=== PATIENT | male | born 1970 | race Caucasian/White ===

== ENCOUNTER 2016-11-25 09:26 | Inpatient (IN) | payer OTHER ==
[~2016-11-25] VITALS: Ht 177.8 cm; Wt 99.8 kg
[~2016-11-25 09:26] MED LIST: ELIQUIS5 MG PO
[2016-11-25 09:39] VITALS: BP 120/105
--- NOTE | 2016-11-25 10:05 | NUR ---
Patient ambulated to bed 8. RN evaluating patient at bedside.
--- NOTE | 2016-11-25 10:10 | NUR ---
46/M BIB FRIEND C/O LEFT LEG PAIN. HX LEFT LOWER LEG DVT. PT STATES HE STOPPED TAKING HIS ELIQUIS AND THE PAIN IN HIS LEG RETURNED WORSE THAN BEFORE. PT STATED HAS COUGH AT THIS TIME. DENIES N/V/D; LEFT LOWER LEG REDNESS,SWELLING &PAIN AT THIS TIME. AAOX4 WITH EVEN AND UNSTEADY GAIT; LUNGS CLEAR BL; HR EVEN AND REGULAR; PT DENIES ANY FEVER, CP, SOB AT THIS TIME; PATIENT STATES PAIN OF 4/10 AT THIS TIME; PATIENT POSITIONED FOR COMFORT; HOB ELEVATED; BEDRAILS UP X2; BED DOWN. ER MD MADE AWARE OF PT STATUS.
--- NOTE | 2016-11-25 10:26 | NUR ---
ER MD DR CANTOR EVALUATING PT AT BEDSIDE
--- NOTE | 2016-11-25 10:47 | NUR ---
US AT BEDSIDE
[2016-11-25] MEDS ORDERED: ENOXAPARIN 100 MG/ML SYR SUBQ ONE (12:00)
[2016-11-25] MEDS ORDERED: ACETAMINOPHEN 325 MG TAB PO PRN (12:15)
[2016-11-25] MEDS ORDERED: MORPHINE SULFATE 4 MG/ML SYR IVP PRN (12:15)
[2016-11-25] MEDS ORDERED: ONDANSETRON 4 MG/2 ML VIAL IVP PRN (12:15)
[2016-11-25] MEDS ORDERED: MORPHINE SULFATE 2 MG/ML SYR IVP PRN (12:15)
[2016-11-25] MEDS ORDERED: ALBUTEROL SULFATE/IPRATROPIU 3 ML SOL IH ONE (12:20)
--- NOTE | 2016-11-25 12:35 | NUR ---
GAVE REPORT TO ABIEL ADAMS
[2016-11-25 12:40] VITALS: BP 127/83
--- NOTE | 2016-11-25 12:40 | NUR ---
PT ARRIVED ON UNIT AAOX4 WITH FAMILY MEMBER PRESENT AT SIDE. PT AMB TO BED. NOTED REDNESS ON THE LEFT LEG. PT SKIN IS INTACT. IV ON THE R AC. ON TELE MONITORING. PT DENIES PAIN. BED IS LOWERED FLAT WITH CALL LIGHT WITHIN REACH.
--- NOTE | 2016-11-25 12:40 | NUR ---
Patient will be admitted to care of DR GORDON. Admited to TELE. Will go to [id number]. Belongings list completed. Report to ABIEL ADAMS.
--- NOTE | 2016-11-25 13:00 | NUR ---
PT SEEN BY DR. GORDON
--- NOTE | 2016-11-25 15:00 | NUR ---
PT IN BED SLEEPING. PT SHOWS NO S/S OF DISTRESS NOTED ON ROOM AIR.
--- NOTE | 2016-11-25 16:00 | NUR ---
PT IN BED RESTING COMFORTABLY WITH NO S/S OF DISTRESS NOTED.
[2016-11-25 16:01] VITALS: BP 133/86
--- NOTE | 2016-11-25 18:00 | NUR ---
PT IN BED WATCHING TV. PT SHOWS NO S/S OF DISTRESS NOTED ON ROOM AIR.
--- NOTE | 2016-11-25 19:03 | NUR ---
GAVE REPORT TO NIGHT NURSE. PT ENDORSED IN STABLE CONDITION.
--- NOTE | 2016-11-25 19:10 | NUR ---
RECEIVED PT AWAKE SITTING ON BED EATING SNACKS, VITAL SIGNS STABLE, NO SOB NOTED, TOLERABLE 3/10 PAIN LEVEL TO LEFT LEG, SITE RED AND SWOLLEN, SKIN INTACT, SAFETY PROTOCOL IN PLACE, PLAN OF CARE DISCUSSED, CALL LIGHT WITHIN REACH.
[2016-11-25 20:00] VITALS: BP 129/90
[2016-11-25] MEDS: ENOXAPARIN 100 MG/ML SYR SUBQ SCH (20:21)
--- NOTE | 2016-11-25 20:30 | NUR ---
LOVENOX SUB-Q GIVEN WITH EDUCATION PROVIDED, ALL NEEDS ATTENDED.
--- NOTE | 2016-11-25 22:15 | NUR ---
AMBULATORY TO BR WITH STEADY GAIT, DENIES ANY PAIN, MONITORED CLOSELY.
[2016-11-26] VITALS: BP 141/89
--- NOTE | 2016-11-26 | NUR ---
SLEEPING, EASILY AROUSABLE, VITAL SIGNS STABLE, DENIES ANY PAIN, OCCASIONAL COUGH NOTED, NO SOB NOTED, CONTINUE TO MONITOR CLOSELY.
[2016-11-26 04:00] VITALS: BP 134/69
--- NOTE | 2016-11-26 04:00 | NUR ---
PT SLEEPING, EASILY AROUSABLE, VITAL SIGNS STABLE, DENIES ANY PAIN.
--- NOTE | 2016-11-26 05:52 | NUR ---
ROUNDED ON PT, SLEEPING, NO SIGNS OF DISTRESS, MONITORED CLOSELY.
--- NOTE | 2016-11-26 07:30 | NUR ---
PT AWAKE, NO DISTRESS NOTED, REPORT GIVEN TO ABIEL MO FOR CONTINUITY OF CARE.
--- NOTE | 2016-11-26 07:32 | NUR ---
RECEIVED REPORT FROM NIGHT RN, PATIENT RESTING IN BED, AAO X 4, IV INTACT AND PATENT, PATIENT DENIES PAIN AT THIS TIME, NO S/S OF ACUTE DISTRESS, LT LEG SWOLLEN AND RED, WARM TO TOUGH, CALL LIGHT WITHIN REACH, SAFETY MEASURE ENSURED, WILL CONTINUE TO MONITOR.
[2016-11-26 08:00] VITALS: BP 134/86
[2016-11-26] MEDS: ENOXAPARIN 100 MG/ML SYR SUBQ SCH (09:21)
--- NOTE | 2016-11-26 09:41 | NUR ---
PATIENT HAS BEEN SCREENED AND CATEGORIZED MODERATE NUTRITION RISK. PATIENT WILL BE SEEN WITHIN 3-5 DAYS OF ADMISSION. 11/27/16-11/29/[address]
--- NOTE | 2016-11-26 10:45 | NUR ---
PT RESTING IN BED, NO S/S OF DISTRESS NOTED, PATIENT DENIES PAIN AT THIS TIME, CALL LIGHT WITHIN REACH, WILL CONTINUE TO MONITOR
[2016-11-26 12:00] VITALS: BP 131/85
--- NOTE | 2016-11-26 12:04 | NUR ---
FAXED INITIAL REVIEW TO [facility] [phone] PHONE LISS [phone]
--- NOTE | 2016-11-26 12:20 | NUR ---
PT RESTING IN BED AND WATCHING TV, NO S/S OF ACUTE DISTRESS, PT DENIES PAIN AT THIS TIME, CALL LIGHT WITH IN REACH, SAFETY MEASURE ENSURED, WILL CONTINUE TO MONITOR.
[2016-11-26 14:02] VITALS: BP 131/85
--- NOTE | 2016-11-26 14:30 | NUR ---
PT IS DISCHARGED, DISCHARGE INSTRUCTION PROVIDED, PT VERBALIZED UNDERSTANDING, IV TAKEN OUT, TIP INTACT, PATIENT IS IN STABLE CONDITION
[2016-11-26] MEDS ORDERED: APIXABAN 2.5 MG TAB PO SCH (21:00)
[2016-11-26] MEDS ORDERED: APIXABAN 10 MG PO SCH (21:00)
== END 2016-11-26 14:58 | disposition home or self-care (01) | DRG 197 ==
LOC: MED 09:26 → MTU 12:15
PROVIDERS: ADMIT Hospitalist; ATTEND Hospitalist
DX: I82.412 Acute embolism and thrombosis of left femoral vein (principal); Z79.01 Long term (current) use of anticoagulants; I82.532 Chronic embolism and thrombosis of left popliteal vein

== ENCOUNTER 2017-04-01 18:10 | Inpatient (IN) | payer OTHER ==
[~2017-04-01] VITALS: Ht 180.3 cm; Wt 112.1 kg
[~2017-04-01 18:10] MED LIST changes: +APIX5TAB PO; -ELIQUIS5 MG PO
[2017-04-01 18:15] VITALS: BP 137/70
[2017-04-01 18:56] LABS: BASOPHILS # (AUTO) 0.1 K/uL (0.00-0.22); BASOPHILS % (AUTO) 1.2 % (0.0-2.0); EOSINOPHILS # (AUTO) 0.3 K/uL (0-0.4); EOSINOPHILS % (AUTO) 4.1 % (0.0-4.0); HEMATOCRIT 49.9 % (36-52); HEMOGLOBIN 16.6 g/dL (12.0-18.0); LYMPHOCYTES # (AUTO) 1.2 K/uL (2.0-11.5); LYMPHOCYTES % (AUTO) 14.3 % (20.5-51.1); MEAN CORPUSCULAR HEMOGLOBIN 30 pg (27-31); MEAN CORPUSCULAR HGB CONC 33 g/dL (33-37); MEAN CORPUSCULAR VOLUME 92 fL (80-94); MONOCYTES # (AUTO) 0.4 K/uL (0.8-1.0); NEUTROPHILS # (AUTO) 6.5 K/uL (1.8-7.7); NEUTROPHILS % (AUTO) 75.4 % (42.2-75.2); PLATELET COUNT (AUTO) 339 K/uL (140-450); RED BLOOD CELL COUNT(AUTO) 5.45 MIL/uL (4.20-6.10); RED CELL DISTRIBUTION WIDTH 12.2 % (11.6-13.7); WHITE BLOOD COUNT (AUTO) 8.5 K/uL (4.8-10.8)
[2017-04-01 19:23] LABS: ANION GAP 15.5 (8-16); CARBON DIOXIDE 25.6 mmol/L (21-32); POTASSIUM 4.1 mmol/L (3.5-5.1)
[2017-04-01 19:31] LABS: PROTHROMBIN TIME 10.3 secs (10.8-13.4)
[2017-04-01 19:32] LABS: TOTAL BILIRUBIN 0.8 mg/dL (0.0-1.0)
[2017-04-01 19:33] LABS: ALBUMIN 3.3 g/dL (3.4-5.0)
--- NOTE | 2017-04-01 19:34 | NUR ---
AMBULATED TO ER BED 3
--- NOTE | 2017-04-01 19:37 | NUR ---
46/M PRESENT TO ER C/O RT LOWER LEG PAIN x 2 DAYS. POS REDNESS AND EDEMA. PAIN 5/10 BURNING PAIN.HX: BLOOD CLOTS 2017 MEDS: WARFARIN 2.5MG
--- NOTE | 2017-04-01 19:45 | NUR ---
VANESSA PARRA EVALUATING PT.
[2017-04-01] MEDS ORDERED: LORazepam 2 MG/ML VIAL IVP PRN (19:55)
[2017-04-01] MEDS ORDERED: HYDROcodone/APAP 5/325 MG 1 TAB TAB PO PRN (19:55)
[2017-04-01] MEDS ORDERED: ACETAMINOPHEN 325 MG TAB PO PRN (19:55)
[2017-04-01] MEDS ORDERED: ONDANSETRON 4 MG/2 ML VIAL IVP PRN (19:55)
[2017-04-01] MEDS ORDERED: LOVENOX 1MG/KG Q24H SUBQ STA (19:57)
[2017-04-01] MEDS ORDERED: ENOXAPARIN 100 MG/ML SYR SUBQ ONE (20:10)
[2017-04-01 20:25] VITALS: BP 138/78
--- NOTE | 2017-04-01 21:04 | NUR ---
PT TAKEN TO FLOOR VIA GURNEY, ACCOMPANIED BY RN AND EMT.
--- NOTE | 2017-04-01 21:07 | NUR ---
PT TAKEN TO FLOOR VIA GURNEY BY CHARGE NURSE AND EMT.
--- NOTE | 2017-04-01 21:10 | NUR ---
RECEIVED PATIENT FROM ED PER MICHEL. PATIENT IS AWAKE, ALERT, ORIENTED X4. ABLE TO AMBULATE TO THE BED. LEFT AC PERIPHERAL IV PATENT AND INTACT. RLE ERYTHEMA AND SWELLING NOTED. SKIN WARM TO TOUCH WNL, TOENAILS WNL, WITH FINE HAIR GROWTH, BROWNISH SPOTS NOTED ON BLE AND +2 BILATERAL PEDAL PULSES. URINE AND BOWEL CONTINENT, ABLE TO MAKE HIS NEEDS KNOWN. ORIENTED TO CALL LIGHT, TV, VISITING HOURS AND BEDSIDE MONITOR. CALL LIGHT WITHIN REACH. WILL MONITOR PATIENT.
--- NOTE | 2017-04-01 21:24 | NUR ---
Patient will be admitted to care of DR MCPHERSON. Admited to TELEMETRY. Will go to room ICU 2. Belongings list completed. Report to ABIEL GERMAN.
[2017-04-01] MEDS: NACL 0.9% 1,000 ML IV SCH (21:31)
[2017-04-02 00:07] VITALS: BP 136/89
--- NOTE | 2017-04-02 00:21 | NUR ---
PATIENT APPEARS TO BE SLEEPING COMFORTABLY AT THIS TIME.
--- NOTE | 2017-04-02 03:28 | NUR ---
PATIENT IS SLEEPING COMFORTABLY AT THIS TIME.
[2017-04-02 04:00] VITALS: BP 145/97
[2017-04-02 05:09] LABS: BASOPHILS # (AUTO) 0.2 K/uL (0.00-0.22); BASOPHILS % (AUTO) 2.8 % (0.0-2.0); EOSINOPHILS # (AUTO) 0.5 K/uL (0-0.4); EOSINOPHILS % (AUTO) 7.4 % (0.0-4.0); HEMATOCRIT 49.8 % (36-52); HEMOGLOBIN 16.5 g/dL (12.0-18.0); LYMPHOCYTES # (AUTO) 1.8 K/uL (2.0-11.5); LYMPHOCYTES % (AUTO) 27.3 % (20.5-51.1); MEAN CORPUSCULAR HEMOGLOBIN 31 pg (27-31); MEAN CORPUSCULAR HGB CONC 33 g/dL (33-37); MEAN CORPUSCULAR VOLUME 94 fL (80-94); MONOCYTES # (AUTO) 0.7 K/uL (0.8-1.0); MONOCYTES % (AUTO) 11.4 % (1.7-9.3); NEUTROPHILS # (AUTO) 3.4 K/uL (1.8-7.7); NEUTROPHILS % (AUTO) 51.1 % (42.2-75.2); PLATELET COUNT (AUTO) 297 K/uL (140-450); RED CELL DISTRIBUTION WIDTH 12.3 % (11.6-13.7)
[2017-04-02 05:54] LABS: ANION GAP 10.4 (8-16); CARBON DIOXIDE 28.8 mmol/L (21-32); POTASSIUM 4.2 mmol/L (3.5-5.1)
[2017-04-02 06:41] LABS: WHITE BLOOD COUNT (AUTO) 6.6 K/uL (4.8-10.8)
--- NOTE | 2017-04-02 07:11 | NUR ---
REPORT GIVEN TO MORNING RN FOR CONTINUITY OF CARE. PATIENT IN STABLE CONDITION.
--- NOTE | 2017-04-02 07:25 | NUR ---
RECEIVED REPORT FROM ABIEL WILKINSON. PT IS AWAKE, AAO X4. MILD REDNESS NOTED TO THE RIGHT LOWER LEG. NO COMPLAINT OF PAIN OR DISCOMFORT AT THIS TIME. NSR ON MONITOR. LUNGS SOUND CLEAR BILATERALLY. BOWEL SOUNDS PRESENT X 4 QUAD. PERIPHERAL IV 20 G TO THE LEFT AC, INTACT AND PATENT, FLOWING ORDERED IV FLUID. NO SIGNS OF ACUTE DISTRESS NOTED. NEEDS WELL ATTENDED. BED IN LOWEST POSITION AND CALL LIGHT WITHIN REACH. WILL CONTINUE TO MONITOR.
[2017-04-02 08:00] VITALS: BP 129/77
[2017-04-02] MEDS: NACL 0.9% 1,000 ML IV SCH ×3 (08:23→20:19)
[2017-04-02] MEDS: ENOXAPARIN 120 MG/0.8 ML SYR SUBQ SCH ×2 (08:56→20:18)
--- NOTE | 2017-04-02 11:01 | NUR ---
FAXED INITIAL REVIEW TO [facility] [phone] PHONE LISS [phone]
--- NOTE | 2017-04-02 11:07 | NUR ---
IN TO CHECK PT, WILL FOLLOW UP.
--- NOTE | 2017-04-02 11:18 | NUR ---
CHECKED ON PT. SLEEPING COMFORTABLY AT THIS TIME. NO SIGNS OF ACUTE DISTRESS NOTED. BED IN LOWEST POSITION. CALL LIGHT WITHIN REACH.
[2017-04-02 12:00] VITALS: BP 140/91
[2017-04-02] MEDS ORDERED: PROBIOTIC SCREEN 1 EA MISC MC PRN (12:00)
--- NOTE | 2017-04-02 12:00 | NUR ---
PT STATED HE DRINKS ALCOHOL SOMETIMES, PT IS ON COUMADIN, EDUCATION GIVEN TO PT REGARDING ALCOHOL INCREASE RISK FOR BLEEDING. PT VERBALIZED UNDERSTANDING.
--- NOTE | 2017-04-02 12:35 | NUR ---
LUNCH TRAY SERVED, PT ATE 90% FOOD.
[2017-04-02 15:48] LABS: PROTHROMBIN TIME 10.4 secs (10.8-13.4)
--- NOTE | 2017-04-02 15:55 | NUR ---
PT SLEEPING IN BED BUT EASILY AWAKEN, NO S/S OF RESPIRATORY DISTRESS NOTED. DENIES PAIN AT THIS TIME.
[2017-04-02 16:00] VITALS: BP 150/98
[2017-04-02] MEDS ORDERED: WARFARIN 2.5 MG TAB PO SCH (17:00)
--- NOTE | 2017-04-02 17:15 | NUR ---
DUE MED GIVEN, DRUG INTERACTION GIVEN TO PT. PT VERBALIZED UNDERSTANDING AND SIGNED THE INSTRUCTION SHEET.
--- NOTE | 2017-04-02 18:30 | NUR ---
PT SLEEPING BUT EASILY AWAKING BY ASSESSMENT. NO S/S OF RESPIRATORY DISTRESS NOTED. PT DENIES PAIN AT THIS TIME.
--- NOTE | 2017-04-02 19:10 | NUR ---
REPORT GIVEN TO ADULT CAREGIVER RN. PT IN STABLE CONDITION.
--- NOTE | 2017-04-02 19:20 | NUR ---
ASSUMED CARE OF PT.INITIAL ASSESSMENT COMPLETED.PT ASLEEP;EASILY AROUSABLE.ON ROOM AIR.TOLERATING AT THIS TIME.NO SOB NOTED.PERIPHERAL IV TO LT AC G20 INTACT INFUSING ORDERED IVF.SKIN INTACT.ERYTHEMA TO RLE NOTED.PT ABLE TO VOID FREELY USING URINAL.DENIES PAIN WHEN ASKED.
[2017-04-02 19:34] LABS: BARBITURATE, URINE NEG. ng/ml (NEG <=200); BENZODIAZEPINE, URINE NEG. ng/mL (NEG <=200); CANNABINOID, URINE NEG. ng/mL (NEG <=50); COCAINE, URINE NEG. ng/mL (NEG <=300); OPIATE, URINE NEG. ng/mL (NEG <=2000); PHENCYCLIDINE SCREEN,URINE NEG. ng/mL (NEG <=25)
[2017-04-02 20:00] VITALS: BP 147/97
--- NOTE | 2017-04-02 22:00 | NUR ---
PT ASLEEP;EASILY AROUSABLE.DENIES PAIN WHEN ASKED.DENIES SOB.REMINDED TO POSITION SELF.
[2017-04-03] VITALS: BP 166/98
--- NOTE | 2017-04-03 00:36 | NUR ---
PTS CONDITION REMAINS UNCHANGED.TOLERATING ROOM AIR. NO SOB NOTED.NO S/SX OF PAIN NOTED.VOIDED YELLOW UIRNE/URINAL
--- NOTE | 2017-04-03 03:25 | NUR ---
PT ASLEEP;NO COMPLAINTS MADE.DENIES PAIN.NO SOB NOTED
[2017-04-03 04:00] VITALS: BP 155/102
[2017-04-03 04:49] LABS: BASOPHILS # (AUTO) 0.2 K/uL (0.00-0.22); BASOPHILS % (AUTO) 2.7 % (0.0-2.0); EOSINOPHILS # (AUTO) 0.3 K/uL (0-0.4); EOSINOPHILS % (AUTO) 4.3 % (0.0-4.0); HEMATOCRIT 50.1 % (36-52); HEMOGLOBIN 16.5 g/dL (12.0-18.0); LYMPHOCYTES # (AUTO) 1.6 K/uL (2.0-11.5); LYMPHOCYTES % (AUTO) 22.2 % (20.5-51.1); MEAN CORPUSCULAR HEMOGLOBIN 31 pg (27-31); MEAN CORPUSCULAR HGB CONC 33 g/dL (33-37); MEAN CORPUSCULAR VOLUME 93 fL (80-94); MONOCYTES # (AUTO) 0.6 K/uL (0.8-1.0); MONOCYTES % (AUTO) 7.8 % (1.7-9.3); NEUTROPHILS # (AUTO) 4.6 K/uL (1.8-7.7); PLATELET COUNT (AUTO) 317 K/uL (140-450); RED BLOOD CELL COUNT(AUTO) 5.39 MIL/uL (4.20-6.10); RED CELL DISTRIBUTION WIDTH 12.5 % (11.6-13.7); WHITE BLOOD COUNT (AUTO) 7.3 K/uL (4.8-10.8)
[2017-04-03 05:56] LABS: ANION GAP 8.2 (8-16); CREATININE 0.9 mg/dL (0.7-1.3); POTASSIUM 4.2 mmol/L (3.5-5.1)
[2017-04-03 06:14] LABS: PROTHROMBIN TIME 10.5 secs (10.8-13.4)
--- NOTE | 2017-04-03 06:19 | NUR ---
ASLEEP MOST OF THE NIGHT.EASILY AROUSABLE.SB NOTED ON MONITOR AT TIMES;PT ASYMPTOMATIC.DENIES PAIN.
[2017-04-03 08:30] VITALS: BP 141/91
--- NOTE | 2017-04-03 08:30 | NUR ---
ASSUMED CARE OF PT FROM DWAIN, PT SLEEPING BUT EASILY AWAKEN BY ASSESSMENT. BEDSIDE MONITOR SHOWS SR, ROOM AIR, NO S/S OF RESPIRATORY DISTRESS NOTED. IV SITE INTACT AND PATENT. ABDOMEN SOFT, NON TENDER, RIGHT LOWER LEG REDNESS GETTING BETTER COMPARED TO YESTERDAY. PT DENIES PAIN, POC EXPLAINED TO PT, PT VERBALIZED UNDERSTANDING, ASKED PT WHY HE IS SO SLEEPY, PT STATED " NOTHING TO DO". CALL LIGHT IN REACH, WILL CONTINUE TO MONITOR.
[2017-04-03] MEDS: ENOXAPARIN 120 MG/0.8 ML SYR SUBQ SCH (09:14)
--- NOTE | 2017-04-03 09:20 | NUR ---
DUE MEDS GIVEN, PT TOLERATED WELL.
[2017-04-03] MEDS ORDERED: RIVA15TA1 PO (10:52)
--- NOTE | 2017-04-03 10:55 | NUR ---
DR. SHELTON IN TO SEE PT. WILL FOLLOW UP.
[2017-04-03] MEDS ORDERED: RIVAROXABAN 15 MG TAB PO SCH (11:27)
[2017-04-03 12:00] VITALS: BP 157/88
--- NOTE | 2017-04-03 12:21 | NUR ---
LUNCH TRAY SERVED. PT ATE 90% FOOD.
--- NOTE | 2017-04-03 12:30 | NUR ---
PT AWAKE, ALERT, AND ORIENTED. NO S/S OF RESPIRATORY DISTRESS NOTED. PT SIGNED DISCHARGE INSTRUCTION AND VERBALIZED UNDERSTANDING, PRESCRIPTION GIVEN. ARMBAND REMOVED, IV D/C ED, CANNULA INTACT. ALL PERSONAL BELONGINGS WITH PT. PT WALKED OUT OF UNIT WITH STEADY GAIT.VITALS STABLE UPON DISCHARGE.
--- NOTE | 2017-04-03 15:39 | NUR ---
VERBAL REVIEW GIVEN TO LISS FROM [facility]. FAXED DISCHARGE SUMMARY.
== END 2017-04-03 12:30 | disposition home or self-care (01) | DRG 197 ==
LOC: MED 18:10 → MIC 19:59
PROVIDERS: ADMIT Hospitalist; ATTEND Hospitalist
DX: I82.431 Acute embolism and thrombosis of right popliteal vein (principal); E44.1 Mild protein-calorie malnutrition; F15.10 Other stimulant abuse, uncomplicated; F10.10 Alcohol abuse, uncomplicated; L03.90 Cellulitis, unspecified; F17.210 Nicotine dependence, cigarettes, uncomplicated; Z91.14 Patient's other noncompliance with medication regimen; Z79.01 Long term (current) use of anticoagulants; I82.403 Acute embolism and thrombosis of unspecified deep veins of lower extremity, bilateral; I82.502 Chronic embolism and thrombosis of unspecified deep veins of left lower extremity
CPT/HCPCS: 36415; 80048; 80053; 80305; 85025; 85610; 85730; 87081; 93971; 96372; 99285; J1650; J7030; Q0092

== ENCOUNTER 2017-07-21 18:17 | Emergency (ER) | payer OTHER ==
[~2017-07-21] VITALS: Ht 180.3 cm; Wt 103.0 kg
[~2017-07-21 18:17] MED LIST changes: -APIX5TAB PO; +RIVA15TA1 PO
[2017-07-21 18:24] VITALS: BP 154/109
[2017-07-21 20:52] VITALS: BP 144/93
== END 2017-07-21 20:52 | disposition home or self-care (01) ==
LOC: MED 18:17
DX: S83.92XA Sprain of unspecified site of left knee, initial encounter (principal); Z76.0 Encounter for issue of repeat prescription; V19.9XXA Pedal cyclist (driver) (passenger) injured in unspecified traffic accident, initial encounter; Y93.89 Activity, other specified; Y92.488 Other paved roadways as the place of occurrence of the external cause; Y99.8 Other external cause status; Z86.718 Personal history of other venous thrombosis and embolism
CPT/HCPCS: 73562; 99284

== ENCOUNTER 2017-09-21 19:01 | Emergency (ER) | payer OTHER ==
[~2017-09-21] VITALS: Ht 177.8 cm; Wt 103.0 kg
[2017-09-21 19:24] VITALS: BP 113/80
--- NOTE | 2017-09-21 19:30 | NUR ---
to lobby , a/w bed, ambulatory , stable, ermd noted.
--- NOTE | 2017-09-21 21:00 | NUR ---
PATIENT PRESENTS TO ED WITH CELLULITIS . PT HAS REDNESS, SWELLING, WARM TO TOUCH AND PAIN ON THE LEFT LEG SINCE YESTERDAY. DENIES N/V/D; AAOX4 WITH EVEN AND STEADY GAIT; LUNGS CLEAR BL; HR EVEN AND REGULAR; PT DENIES ANY FEVER, CP, SOB, OR COUGH AT THIS TIME; PATIENT STATES PAIN OF 0/10 AT THIS TIME; VSS; PATIENT POSITIONED FOR COMFORT; HOB ELEVATED; BEDRAILS UP X2; BED DOWN. ER MD MADE AWARE OF PT STATUS.
--- NOTE | 2017-09-21 21:02 | NUR ---
Patient being evaluated by physician at bedside.
[2017-09-21] MEDS ORDERED: cefTRIAXone 1,000 MG in LIDOCAINE MPF 1% - **ER/OR** 2.1 ML IM ONE (21:10)
[2017-09-21 21:40] VITALS: BP 110/78
--- NOTE | 2017-09-21 21:40 | NUR ---
Patient discharged with v/s stable. Written and verbal after care instructions given and explained. Patient alert, oriented and verbalized understanding of instructions. Ambulatory with steady gait. All questions addressed prior to discharge. ID band removed. Patient advised to follow up with PMD. Rx of XARELTO, KEFLEX, BACTRIM DS given. Patient educated on indication of medication including possible reaction and side effects. Opportunity to ask questions provided and answered.
== END 2017-09-21 21:40 | disposition home or self-care (01) ==
LOC: MED 19:01
DX: L03.116 Cellulitis of left lower limb (principal); I48.91 Unspecified atrial fibrillation
CPT/HCPCS: 96372; 99283; J0696; J2001

== ENCOUNTER 2017-09-24 15:04 | Inpatient (IN) | payer OTHER ==
[~2017-09-24] VITALS: Ht 177.8 cm; Wt 102.3 kg
[2017-09-24 15:30] VITALS: BP 145/106
--- NOTE | 2017-09-24 16:24 | NUR ---
PT TAKEN TO BED VIA W/C
[2017-09-24] MEDS ORDERED: NACL 0.9% 1,000 ML IV ONE (16:30)
[2017-09-24] MEDS ORDERED: PIPERACILLIN/TAZOBACTAM 3.375 GM in DEXTROSE 5% 50 ML IV ONE (16:30)
[2017-09-24] MEDS ORDERED: VANCOMYCIN 1,000 MG in DEXTROSE 5% 250 ML IV ONE (16:30)
[2017-09-24 17:31] LABS: BASOPHILS # (AUTO) 0.1 K/uL (0.00-0.22); EOSINOPHILS # (AUTO) 0.2 K/uL (0-0.4); EOSINOPHILS % (AUTO) 1.5 % (0.0-4.0); HEMATOCRIT 52.5 % (36-52); HEMOGLOBIN 17.1 g/dL (12.0-18.0); LYMPHOCYTES % (AUTO) 8.1 % (20.5-51.1); MEAN CORPUSCULAR HEMOGLOBIN 31 pg (27-31); MEAN CORPUSCULAR HGB CONC 33 g/dL (33-37); MEAN CORPUSCULAR VOLUME 95 fL (80-94); MONOCYTES # (AUTO) 0.9 K/uL (0.8-1.0); MONOCYTES % (AUTO) 7.3 % (1.7-9.3); NEUTROPHILS # (AUTO) 10.1 K/uL (1.8-7.7); NEUTROPHILS % (AUTO) 82.1 % (42.2-75.2); PLATELET COUNT (AUTO) 369 K/uL (140-450); RED BLOOD CELL COUNT(AUTO) 5.55 MIL/uL (4.20-6.10); WHITE BLOOD COUNT (AUTO) 12.3 K/uL (4.8-10.8)
[2017-09-24 18:03] LABS: ANION GAP 13.1 (8-16); CREATININE 1.1 mg/dL (0.7-1.3); POTASSIUM 4.1 mmol/L (3.5-5.1)
[2017-09-24] MEDS ORDERED: VANCOMYCIN 1,000 MG VIAL ONE (18:06)
[2017-09-24] MEDS ORDERED: PIPERACILLIN/TAZOBACTAM 3.375 GM VIAL IV ONE ×2 (18:06→21:41)
[2017-09-24 18:16] LABS: ALBUMIN 3.5 g/dL (3.4-5.0); TOTAL BILIRUBIN 0.7 mg/dL (0.0-1.0)
--- NOTE | 2017-09-24 18:30 | NUR ---
PATIENT PRESENTS TO ED WITH LEFT LEG CELLULITIS X 3 DAYS. WAS SEEN HERE LAST WEEK FOR A "BLOOD CLOT" TO LEFT LEG. SITE REDDENED/HOT/PAINFUL TO TOUCH. DENIES FEVERS/CHILLS. PT DENIES N/V/D; AAOX4 WITH EVEN AND STEADY GAIT; LUNGS CLEAR BL; HR EVEN AND REGULAR; PT DENIES ANY FEVER, CP, SOB, OR COUGH AT THIS TIME; PATIENT STATES PAIN OF 4/10 AT THIS TIME; VSS; PATIENT POSITIONED FOR COMFORT; HOB ELEVATED; BEDRAILS UP X2; BED DOWN. ER MD MADE AWARE OF PT STATUS.
[2017-09-24 18:37] LABS: APPEARANCE,URINE CLEAR (CLEAR); BILIRUBIN,URINE NEGATIVE (NEGATIVE); BLOOD, URINE NEGATIVE (NEGATIVE); COLOR,URINE YELLOW (YELLOW); LEUKOCYTE ESTERASE ,URINE NEGATIVE (NEGATIVE); NITRITE, URINE NEGATIVE (NEGATIVE); UGLUCOSE NEGATIVE (NEGATIVE)
[2017-09-24] MEDS ORDERED: ONDANSETRON 4 MG/2 ML VIAL IVP PRN (18:45)
[2017-09-24] MEDS ORDERED: MORPHINE SULFATE 2 MG/ML SYR IVP PRN (18:45)
[2017-09-24] MEDS ORDERED: LORazepam 2 MG/ML VIAL IVP PRN (18:45)
[2017-09-24] MEDS ORDERED: ACETAMINOPHEN 325 MG TAB PO PRN (18:45)
[2017-09-24] MEDS ORDERED: HYDROcodone/APAP 5/325 MG 1 TAB TAB PO PRN (18:45)
--- NOTE | 2017-09-24 19:28 | NUR ---
Patient will be admitted to care of DR MCPHERSON. Admited to TELE. Will go to room 105B. Belongings list completed. Report to ABIEL DUGAN.
--- NOTE | 2017-09-24 19:40 | NUR ---
ADMITTED PATIENT TO THE TELE UNIT, PATIENT AWAKE ALERT ORIENTED X4, NO S/S OF DISTRESS NOTED, RESPIRATION EVEN AND UNLABORED, IV PATENT AND INTACT, INFUSING VANCOMYCIN AT 165ML/HR. PLAN OF CARE DISCUSSED, PATIENT VERBALIZED UNDERSTANDING, CALL LIGHT WITHIN REACH, SAFETY MEASURE ENSURED, WILL CONTINUE TO MONITOR.
[2017-09-24 19:45] VITALS: BP 126/83
[2017-09-24] MEDS: NACL 0.9% 1,000 ML IV SCH (21:46)
[2017-09-24] MEDS: PIPERACILLIN/TAZOBACTAM 3.375 GM in DEXTROSE 5% 50 ML IV SCH (21:46)
--- NOTE | 2017-09-24 21:46 | NUR ---
ZOSYN 3.375G STARTED, PATIENT TOLERATED WELL. NO S/S OF DISTRESS NOTED, WILL CONTINUE TO MONITOR.
[2017-09-24] MEDS ORDERED: VANCOMYCIN HCL 1,500 MG in NACL 0.9% 500 ML IV SCH (22:00)
[2017-09-24] MEDS ORDERED: VANCOMYCIN PER PHARMACY MC PRN (23:00)
[2017-09-24] MEDS ORDERED: NACL 0.9% IV SCH (23:00)
[2017-09-24] MEDS ORDERED: VANCOMYCIN IV SCH (23:00)
[2017-09-24] MEDS ORDERED: VANCOMYCIN 500 MG VIAL ONE (23:14)
--- NOTE | 2017-09-24 23:25 | NUR ---
VANCOMYCIN 500MG STATED, PATIENT TOLERATED WELL, NO S/S OF DISTRESS NOTED, WILL CONTINUE TO MONITOR.
[2017-09-25] VITALS: BP 118/76
--- NOTE | 2017-09-25 01:26 | NUR ---
PATIENT IS SLEEPING, RESPIRATION EVEN AND UNLABORED, ON ROOM AIR. CALL LIGHT WITHIN REACH, SAFETY MEASURE ENSURED, WILL CONTINUE TO MONITOR.
[2017-09-25 01:30] LABS: CREATINE KINASE MB 0.7 ng/mL (0-3.6)
--- NOTE | 2017-09-25 03:38 | NUR ---
NO CHANGE IN CONDITION, PATIENT IS SLEEPING, RESPIRATION EVEN AND UNLABORED, CALL LIGHT WITHIN REACH, SAFETY MEASURE ENSURED, WILL CONTINUE TO MONITOR.
[2017-09-25 04:00] VITALS: BP 125/87
[2017-09-25] MEDS ORDERED: PIPERACILLIN/TAZOBACTAM 3.375 GM VIAL IV ONE (04:24)
[2017-09-25] MEDS: PIPERACILLIN/TAZOBACTAM 3.375 GM in DEXTROSE 5% 50 ML IV SCH (04:26)
--- NOTE | 2017-09-25 04:37 | NUR ---
VITAL SIGNS STABLE, NO S/S OF DISTRESS NOTED, RESPIRATION EVEN AND UNLABORED, ZOSYN STARTED, PATIENT TOLERATED WELL. WILL CONTINUE TO MONITOR.
--- NOTE | 2017-09-25 06:12 | NUR ---
PATIENT IS SLEEPING, NO S/S OF DISTRESS NOTED, RESPIRATION EVEN AND UNLABORED, CALL LIGHT WITHIN REACH, SAFETY MEASURE ENSURED, WILL CONTINUE TO MONITOR.
[2017-09-25 06:28] LABS: BASOPHILS # (AUTO) 0.1 K/uL (0.00-0.22); BASOPHILS % (AUTO) 1.6 % (0.0-2.0); EOSINOPHILS # (AUTO) 0.3 K/uL (0-0.4); EOSINOPHILS % (AUTO) 3.3 % (0.0-4.0); HEMATOCRIT 48.5 % (36-52); HEMOGLOBIN 16.1 g/dL (12.0-18.0); LYMPHOCYTES # (AUTO) 1.1 K/uL (2.0-11.5); LYMPHOCYTES % (AUTO) 12.3 % (20.5-51.1); MEAN CORPUSCULAR HEMOGLOBIN 32 pg (27-31); MEAN CORPUSCULAR HGB CONC 33 g/dL (33-37); MEAN CORPUSCULAR VOLUME 95 fL (80-94); MONOCYTES # (AUTO) 0.9 K/uL (0.8-1.0); MONOCYTES % (AUTO) 9.5 % (1.7-9.3); NEUTROPHILS # (AUTO) 6.8 K/uL (1.8-7.7); NEUTROPHILS % (AUTO) 73.3 % (42.2-75.2); PLATELET COUNT (AUTO) 328 K/uL (140-450); RED CELL DISTRIBUTION WIDTH 12.7 % (11.6-13.7); WHITE BLOOD COUNT (AUTO) 9.2 K/uL (4.8-10.8)
[2017-09-25 07:02] LABS: ANION GAP 12.2 (8-16); CARBON DIOXIDE 25.5 mmol/L (21-32); CREATININE 0.9 mg/dL (0.7-1.3); POTASSIUM 3.7 mmol/L (3.5-5.1)
[2017-09-25] MEDS: NACL 0.9% 1,000 ML IV SCH ×2 (07:12→19:44)
--- NOTE | 2017-09-25 07:15 | NUR ---
ENDORSE PLAN OF CARE TO DAY SHIT RN, PATIENT RESTING IN BED, IN STABLE CONDITION.
--- NOTE | 2017-09-25 07:16 | NUR ---
RECEIVED REPORT FROM ENGINEERING SUPERVISOR NURSE. PATIENT LYING DOWN IN BED SLEEPING, AROUSABLE BY VOICE. NO DISTRESS NOTED. DENIES ANY PAIN AT THIS TIME. AAOX4, CALM, COOPERATIVE, SKIN COLOR APPROPRIATE TO ETHNICITY, WARM TO TOUCH. HAS LEFT LE CELLULITIS WITH +1 PITTING EDEMA, HOWEVER, SKIN IS INTACT. IV SITE INTACT, PATENT, AND INFUSING IVF PER ORDERS. LUNG CTA ON ALL LOBES. ABDOMEN SOFT, NON-DISTENDED. REVIEWED PLAN OF CARE WITH PATIENT. PATIENT VERBALIZED UNDERSTANDING. SAFETY MEASURES IN PLACE, CALL LIGHT WITHIN REACH. WILL CONTINUE TO MONITOR.
[2017-09-25 08:00] VITALS: BP 117/80
[2017-09-25] MEDS ORDERED: ENOXAPARIN 40 MG/0.4 ML SYR SUBQ SCH (09:00)
[2017-09-25] MEDS ORDERED: ASPIRIN 325 MG TAB PO SCH (09:00)
--- NOTE | 2017-09-25 09:08 | NUR ---
PATIENT LYING DOWN IN BED SLEEPING, AROUSABLE BY VOICE. NO DISTRESS NOTED. DENIES ANY PAIN AT THIS TIME. SCHEDULED MEDICATIONS DUE GIVEN. SAFETY MEASURES IN PLACE, CALL LIGHT WITHIN REACH. WILL CONTINUE TO MONITOR.
[2017-09-25] MEDS ORDERED: VANCOMYCIN 1,500 MG in DEXTROSE 5% 500 ML IV SCH (10:00)
--- NOTE | 2017-09-25 10:09 | NUR ---
FAXED INITIAL REVIEW TO [facility] [phone] PHONE LISS [phone]
--- NOTE | 2017-09-25 10:33 | NUR ---
PATIENT HAS BEEN SCREENED AND CATEGORIZED MODERATE NUTRITION RISK. PATIENT WILL BE SEEN WITHIN 3-5 DAYS OF ADMISSION. 09/27/17 - 09/29/[address]
--- NOTE | 2017-09-25 10:49 | NUR ---
PATIENT LYING IN BED COMFORTABLY. NO DISTRESS NOTED. DENIES ANY PAIN AT THIS TIME. SCHEDULED ANTIBIOTIC MEDICATION DUE GIVEN. SAFETY MEASURES IN PLACE, CALL LIGHT WITHIN REACH. WILL CONTINUE TO MONITOR.
[2017-09-25 11:43] VITALS: BP 104/60
[2017-09-25] MEDS ORDERED: ENOXAPARIN 100 MG/ML SYR SUBQ SCH (12:22)
--- NOTE | 2017-09-25 12:50 | NUR ---
PATIENT SITTING IN BED WATCHING TV. NO DISTRESS NOTED. DENIES ANY PAIN AT THIS TIME. SAFETY MEASURES IN PLACE, CALL LIGHT WITHIN REACH. WILL CONTINUE TO MONITOR.
[2017-09-25] MEDS ORDERED: ENOXAPARIN 60 MG/0.6 ML SYR SUBQ SCH (12:52)
[2017-09-25] MEDS ORDERED: PIPER/TAZO 3.375GM/D5W PREMIX 50 ML IV SCH (13:00)
[2017-09-25 13:15] LABS: PROTHROMBIN TIME 12.1 secs (10.8-13.4)
--- NOTE | 2017-09-25 15:00 | NUR ---
PATIENT LYING DOWN IN BED SLEEPING. NO DISTRESS NOTED. DENIES ANY PAIN AT THIS TIME. CONDITION UNCHANGED. SAFETY MEASURES IN PLACE, CALL LIGHT WITHIN REACH. WILL CONTINUE TO MONITOR.
--- NOTE | 2017-09-25 16:00 | NUR ---
RADIOLOGIST AT BEDSIDE READY TO TAKE PATIENT FOR CT SCAN OF LOWER EXTREMITY WITH CONTRAST. WILL CONTINUE TO MONITOR WHEN PATIENT RETURNS.
[2017-09-25 16:18] VITALS: BP 115/74
--- NOTE | 2017-09-25 16:20 | NUR ---
PATIENT BACK TO [facility]ST UNIT FROM RADIOLOGY VIA WHEELCHAIR. NO DISTRESS NOTED. IN STABLE CONDITION. RECONNECTED PATIENT BACK TO IVF PER ORDERS. SAFETY MEASURES IN PLACE, CALL LIGHT WITHIN REACH. WILL CONTINUE TO MONITOR.
[2017-09-25] MEDS ORDERED: RIVAROXABAN 15 MG TAB PO SCH (17:00)
--- NOTE | 2017-09-25 18:00 | NUR ---
PATIENT LYING IN BED COMFORTABLY ON THE PHONE. NO DISTRESS NOTED. DENIES ANY PAIN. CONDITION UNCHANGED. SAFETY MEASURES IN PLACE, CALL LIGHT WITHIN REACH. WILL CONTINUE TO MONITOR.
--- NOTE | 2017-09-25 19:30 | NUR ---
GAVE REPORT TO ACID BATH MIXER NURSE FOR CONTINUITY OF CARE. PATIENT IN STABLE CONDITION.
--- NOTE | 2017-09-25 19:35 | NUR ---
RECEIVED REPORT FROM DAY SHIFT RN, PATIENT RESTING IN BED, NO S/S OF DISTRESS NOTED, RESPIRATION EVEN AND UNLABORED, IV PATENT AND INTACT, INFUSING NS AT 80ML/HR. CALL LIGHT WITHIN REACH, SAFETY MEASURE ENSURED, WILL CONTINUE TO MONITOR.
[2017-09-25] MEDS: ENOXAPARIN 100 MG/ML SYR SUBQ SCH ×2 (21:00→21:27)
[2017-09-25] MEDS ORDERED: ENOXAPARIN 80 MG/0.8 ML SYR SUBQ ONE (21:17)
[2017-09-25] MEDS ORDERED: ENOXAPARIN 30 MG/0.3 ML SYR SUBQ ONE (21:18)
[2017-09-25] MEDS: CLINDAMYCIN 600 MG in DEXTROSE 5% 50 ML IV SCH (21:26)
--- NOTE | 2017-09-25 21:47 | NUR ---
DR. WALKER SAID." HOLD LOVENOX FOR [employer]."
--- NOTE | 2017-09-26 00:35 | NUR ---
VITAL SIGNS STABLE, NO S/S OF DISTRESS NOTED, RESPIRATION EVEN AND UNLABORED, ON ROOM AIR. CALL LIGHT WITHIN REACH, SAFETY MEASURE ENSURED, WILL CONTINUE TO MONITOR.
--- NOTE | 2017-09-26 02:36 | NUR ---
PATIENT IS SLEEPING, NO S/S OF DISTRESS NOTED, RESPIRATION EVEN AND UNLABORED, ON ROOM AIR. CALL LIGHT WITHIN REACH, SAFETY MEASURE ENSURED, WILL CONTINUE TO MONITOR.
[2017-09-26 04:00] VITALS: BP 125/84
[2017-09-26] MEDS: CLINDAMYCIN 600 MG in DEXTROSE 5% 50 ML IV SCH ×3 (05:12→20:48)
--- NOTE | 2017-09-26 05:34 | NUR ---
DUE CLEOCIN STARTED, PATIENT TOLERATED WELL. NO S/S OF DISTRESS NOTED, RESPIRATION EVEN AND UNLABORED, CALL LIGHT WITHIN REACH, SAFETY MEASURE ENSURED, WILL CONTINUE TO MONITOR.
--- NOTE | 2017-09-26 07:25 | NUR ---
RECEIVED REPORT FROM SENIOR ELECTRONICS DESIGN ENGINEER RN, PT IS A/OX4, ON ROOM AIR. PT AMBULATES WITH STEADY GAIT TO RESTROOM. PT HAS 20G IV TO RIGHT AC. CELLULITIS TO LEFT LOWER LEG. UPDATED BOARD. DISCUSSED PLAN OF CARE WITH PT, PT VERBALIZED UNDERSTANDING. VITAL SIGNS WITHIN NORMAL LIMITS. PT IN STABLE CONDITION, NO SIGNS OF DISTRESS NOTED. BED IN LOWEST POSITION, CALL LIGHT WITHIN REACH. WILL CONTINUE TO MONITOR.
[2017-09-26 07:40] LABS: BASOPHILS # (AUTO) 0.1 K/uL (0.00-0.22); BASOPHILS % (AUTO) 1.6 % (0.0-2.0); EOSINOPHILS # (AUTO) 0.3 K/uL (0-0.4); EOSINOPHILS % (AUTO) 3.9 % (0.0-4.0); HEMATOCRIT 49.3 % (36-52); HEMOGLOBIN 16.4 g/dL (12.0-18.0); LYMPHOCYTES # (AUTO) 1.2 K/uL (2.0-11.5); LYMPHOCYTES % (AUTO) 14.5 % (20.5-51.1); MEAN CORPUSCULAR HEMOGLOBIN 31 pg (27-31); MEAN CORPUSCULAR HGB CONC 33 g/dL (33-37); MEAN CORPUSCULAR VOLUME 95 fL (80-94); MONOCYTES # (AUTO) 0.6 K/uL (0.8-1.0); MONOCYTES % (AUTO) 7.1 % (1.7-9.3); NEUTROPHILS # (AUTO) 6.2 K/uL (1.8-7.7); NEUTROPHILS % (AUTO) 72.9 % (42.2-75.2); PLATELET COUNT (AUTO) 336 K/uL (140-450); RED BLOOD CELL COUNT(AUTO) 5.21 MIL/uL (4.20-6.10); RED CELL DISTRIBUTION WIDTH 12.6 % (11.6-13.7); WHITE BLOOD COUNT (AUTO) 8.4 K/uL (4.8-10.8)
[2017-09-26] MEDS: ENOXAPARIN 100 MG/ML SYR SUBQ SCH ×2 (08:41→21:00)
[2017-09-26 08:50] LABS: ALBUMIN 2.8 g/dL (3.4-5.0); ANION GAP 13.1 (8-16); CARBON DIOXIDE 25.7 mmol/L (21-32); CREATININE 0.8 mg/dL (0.7-1.3); POTASSIUM 3.8 mmol/L (3.5-5.1); TOTAL BILIRUBIN 0.7 mg/dL (0.0-1.0)
[2017-09-26] MEDS: NACL 0.9% 1,000 ML IV SCH ×2 (09:00→23:45)
--- NOTE | 2017-09-26 09:00 | NUR ---
HELD LOVENX DUE TO PROCEDURE LATER. PT IN STABLE CONDITION.
--- NOTE | 2017-09-26 11:20 | NUR ---
ENDORSED PT TO DAY SHIFT RN MADHU. PT IN STABLE CONDITION.
--- NOTE | 2017-09-26 11:25 | NUR ---
ASSUMED CARE FROM DYLAN. PT AAOX4. NO SOB NOTED. NO C/O PAIN AT THIS TIME. PT IS FOR I&D OF LEFT LEG CELLULITIS. TODAY BY DR. WALKER, PT IS NOT ON THE LIST FOR SURGERY YET. NPO MAINTAINED FOR THE PLANNED PROCEDURE. PT VERBALIZED UNDERSTANDING
[2017-09-26 13:00] VITALS: BP 127/80
--- NOTE | 2017-09-26 15:13 | NUR ---
PT SEEN BY DR. WALKER WITH NEW ORDERS. SURGERY POSTPONED TOMORROW. WILL SERVED REGULAR DIET THEN NPO POST MIDNIGHT. PT NOTIFIED, VERBALIZED UNDERSTANDING.
--- NOTE | 2017-09-26 15:26 | NUR ---
CM NOTE CONCURRENT REVIEW FAXED TO [facility] / FAX# [phone], ATTN: LISS [phone]
--- NOTE | 2017-09-26 16:30 | NUR ---
PT ASLEEP. NO SOB NOTED, NO C/O PAIN AT THIS TIME. REPORT GIVEN TO ANGELA-RN FOR CONTINUITY OF CARE.
--- NOTE | 2017-09-26 16:32 | NUR ---
ASSUMED CARE FROM DYLAN. PT AAOX4. NO SOB NOTED. NO C/O PAIN AT THIS TIME. PT IS FOR I&D OF LEFT LEG CELLULITIS. TODAY BY DR. WALKER, PT IS NOT ON THE LIST FOR SURGERY YET. PATIENT CURRENTLY ON REGULAR DIET, WILL BE NPO AFTER MIDNIGHT FOR THE PLANNED PROCEDURE. PT VERBALIZED UNDERSTANDING. VITAL SIGNS WNL. IV PATENT AND ASYMPTOMATIC, IVF INFUSING WELL. SAFETY PRECAUTION IN PLACE, CALL LIGHT WITHIN REACH, WILL CONTINUE TO MONITOR PATIENT.
--- NOTE | 2017-09-26 17:45 | NUR ---
PATIENT EATING DINNER. NO SIGNS OF SOB OR DISTRESS NOTED, PATIENT DENIES PAIN. SAFETY PRECAUTION IN PLACE, CALL LIGHT WITHIN REACH, WILL CONTINUE TO MONITOR PATIENT.
--- NOTE | 2017-09-26 19:10 | NUR ---
REPORT GIVEN TO DESIGNER ARCHITECT NURSE. PATIENT IN STABLE CONDITION.
--- NOTE | 2017-09-26 19:40 | NUR ---
AWAKE ALERT AND ORIENTED.RESP.UNLABORED IN RA.VS STABLE.CALL LIGHT WITHIN REACH.CARE PLAN DISCUSSED W/PT.HE VERBALIZED UNDERSTANDING.NO C/O PAIN OR DISCOMFORT NOW.IVF INFUSING WELL.
[2017-09-26 19:54] VITALS: BP 101/68
--- NOTE | 2017-09-26 21:02 | NUR ---
PT WILL HAVE SURGERY TOMORROW SO LOVENOX IS ON HOLD AND DIDN'T GIVE TO PT AT 2100.
[2017-09-27] VITALS (10 sets, daily range): BP systolic 115–146; BP diastolic 68–91
--- NOTE | 2017-09-27 03:00 | NUR ---
SLEEPING NO SIGN OF ANY DISTRESS NOTED.IVF IS IN PROGRESS.
[2017-09-27] MEDS: CLINDAMYCIN 600 MG in DEXTROSE 5% 50 ML IV SCH ×2 (04:56→12:05)
--- NOTE | 2017-09-27 06:41 | NUR ---
HE IS NPO FOR I&D OF LLE.IVF IS IN PROGRESS.PRE-OP CHECK LIST DONE.
[2017-09-27 06:52] LABS: PLATELET COUNT (AUTO) 346 K/uL (140-450); RED CELL DISTRIBUTION WIDTH 12.4 % (11.6-13.7)
[2017-09-27 07:11] LABS: MEAN CORPUSCULAR HGB CONC 33 g/dL (33-37)
[2017-09-27 07:14] LABS: RED BLOOD CELL COUNT(AUTO) 5.34 MIL/uL (4.20-6.10); WHITE BLOOD COUNT (AUTO) 9.3 K/uL (4.8-10.8)
[2017-09-27 07:15] LABS: HEMATOCRIT 50.6 % (36-52); HEMOGLOBIN 16.8 g/dL (12.0-18.0); MEAN CORPUSCULAR HEMOGLOBIN 31 pg (27-31); MEAN CORPUSCULAR VOLUME 94.7 fL (80-94)
[2017-09-27 07:20] LABS: ANION GAP 12.5 (8-16); CARBON DIOXIDE 27.4 mmol/L (21-32); CREATININE 0.9 mg/dL (0.7-1.3); POTASSIUM 3.9 mmol/L (3.5-5.1)
--- NOTE | 2017-09-27 07:20 | NUR ---
RECEIVED REPORT FROM IT SALES CONSULTANT NURSE. PT RESTING IN BED, AOX4, NO SOB OR DISTRESS NOTED. NO C/O PAIN AT THIS TIME. PT CURRENTLY NPO AFTER MIDNIGHT FOR THE PLANNED I & D WITH DR. WALKER TODAY. PLAN OF CARE DISCUSSED WITH PATIENT. PT VERBALIZED UNDERSTANDING. VITAL SIGNS WNL. IV PATENT AND ASYMPTOMATIC, IVF INFUSING WELL. SAFETY PRECAUTION IN PLACE, CALL LIGHT WITHIN REACH, WILL CONTINUE TO MONITOR PATIENT.
[2017-09-27 08:07] LABS: EOSINOPHILS % (MANUAL) 3 % (0-4); LYMPHOCYTES % (MANUAL) 15 % (20-46); MONOCYTES % (MANUAL) 5 % (5-12)
[2017-09-27] MEDS: BUPIVACAINE-MPF 0.25% 30 ML VIAL INJ ONE ×2 (08:43→09:55)
--- NOTE | 2017-09-27 08:49 | NUR ---
TWO OR NURSES CAME TO TAKE PATIENT TO I & D OF LEFT LOWER LEG WITH DR. WALKER. PATIENT IN STABLE CONDITION.
[2017-09-27] MEDS ORDERED: SEVOFLURANE 250 ML BTL INH ONE (09:00)
[2017-09-27] MEDS: ENOXAPARIN 100 MG/ML SYR SUBQ SCH (09:00)
[2017-09-27] MEDS ORDERED: ONDANSETRON 4 MG/2 ML VIAL ONE (09:00)
[2017-09-27] MEDS: NACL 0.9% 1,000 ML IV SCH (09:12)
[2017-09-27] MEDS ORDERED: MORPHINE SULFATE 4 MG/ML SYR ONE (09:19)
[2017-09-27] MEDS ORDERED: fentaNYL 0.05 MG/ML VIAL ONE (09:19)
[2017-09-27] MEDS ORDERED: MIDAZOLAM 2 MG/2 ML VIAL ONE (09:19)
[2017-09-27] MEDS ORDERED: MORPHINE SULFATE 4 MG/ML SYR IVP PRN ×2 (09:55)
[2017-09-27] MEDS ORDERED: MIDAZOLAM 2 MG/2 ML VIAL IV ONE (09:55)
[2017-09-27] MEDS ORDERED: MORPHINE SULFATE 2 MG/ML SYR IVP PRN (09:55)
--- NOTE | 2017-09-27 10:42 | NUR ---
PATIENT ARRIVED BACK ON FLOOR ACCOMPANIED BY 2 OR NURSES. PATIENT ALERT AND AWAKE, DENIES PAIN AT THE MOMENT. SAFETY PRECAUTION IN PLACE, CALL LIGHT WITHIN REACH. WILL CONTINUE TO MONITOR PATIENT.
--- NOTE | 2017-09-27 11:45 | NUR ---
DR. GORDON IN TO SEE THE PATIENT. PATIENT RESTING IN BED, NO SIGNS OF DISTRESS NOTED, PATIENT DENIES PAIN AT THIS TIME. SAFETY PRECAUTION IN PLACE, CALL LIGHT WITHIN REACH. WILL CONTINUE TO MONITOR PATIENT AND WAIT FOR UPDATED ORDERS FROM DR. GORDON.
--- NOTE | 2017-09-27 14:27 | NUR ---
1400 SPOKE WITH PT REGARDING HOME HEALTH FOR WOUND CARE AND PT IS IN AGREEMENT AND HAS NO PREFERENCE FOR AGENCIES. INFORMED HIM THAT IT WILL BE AN [facility] CONTRACTED AGENCY.
--- NOTE | 2017-09-27 15:14 | NUR ---
FAXED CONCURRENT REVIEW TO [facility] [phone] PHONE LISS [phone] CALLED LISA FROM [facility]. THEY WILL ACCEPT THE PATIENT FOR WOUND CARE. THEY WILL START TOMORROW.PHONE [phone]. FAXED INFORMATION TO [phone]. CALLED LISS AND INFORMED HER THAT [facility] WILL SEE THIS PATIENT.
[2017-09-27] MEDS ORDERED: CLIN300C2 PO ×3 (15:46→16:15)
[2017-09-27] MEDS ORDERED: ACET-2869 PO (15:47)
--- NOTE | 2017-09-27 16:00 | NUR ---
VITAL SIGNS WITHIN NORMAL LIMITS. DISCHARGE INSTRUCTIONS AND EDUCATION GIVEN TO PATIENT. PATIENT AND GIRLFRIEND VERBALIZED UNDERSTANDING. IV REMOVED, IV CATHETER INTACT, MINIMAL BLEEDING NOTED. ID BANDS REMOVED. PATIENT INFORMED RN THAT [place] [address] [id number] [address] [id number]. ANAHI FROM CASE MANAGEMENT WAS NOTIFIED. PATIENT WILL NOW GET DRESSED AND WAIT TO BE DISCHARGED. WOUND SUPPLY FOR 5 DAYS GIVEN TO PATIENT. INFORMED PATIENT THAT [facility] WILL PAY PATIENT A VISIT TOMORROW FOR WOUND CARE. PATIENT VERBALIZED UNDERSTANDING. PATIENT LIVES WITH GIRLFRIEND, WHOSE MOTHER IS A NURSE SO CAN PROVIDE WOUND CARE FOR PATIENT WHEN PATIENT IS NOT VISITED BY [facility].
--- NOTE | 2017-09-27 16:06 | NUR ---
RECEIVED A CALL FROM LISS FROM [facility]. THE AUTH FOR [facility] IS [id number]. I CALLED [facility] AND SPOKE WITH LISA AND GAVE HER THE AUTH NUMBER. I ALSO INFORMED HER THAT THE ADDRESS THE PATIENT WILL BE GOING TO IS [address] [place], [place] [address] SAME PHONE NUMBER. I SPOKE WITH ANGELA BEEBE AND INFORMED HER OF THE HOME HEALTH AND TO SEND PATIENT HOME WITH DRESSING SUPPLIES.
--- NOTE | 2017-09-27 16:30 | NUR ---
PATIENT WHEELED OFF FLOOR WITH GIRLFRIEND AND RN BY SIDE. PATIENT TOOK ALL HIS BELONGINGS WIT HIM. PATIENT IN STABLE CONDITION.
== END 2017-09-27 16:30 | disposition home health service (06) | DRG 383 ==
LOC: MED 15:04 → MTU 18:47
PROVIDERS: ADMIT Hospitalist; ATTEND Hospitalist
PROC: 0JCP0ZZ Extirpation of Matter from Left Lower Leg Subcutaneous Tissue and Fascia, Open Approach (ICD-10-PCS; principal; 2017-09-24)
DX: L03.116 Cellulitis of left lower limb (principal); R65.10 Systemic inflammatory response syndrome (SIRS) of non-infectious origin without acute organ dysfunction; I48.91 Unspecified atrial fibrillation; F17.210 Nicotine dependence, cigarettes, uncomplicated; S80.12XA Contusion of left lower leg, initial encounter; Z86.718 Personal history of other venous thrombosis and embolism; L02.416 Cutaneous abscess of left lower limb; V87.8XXA Person injured in other specified noncollision transport accidents involving motor vehicle (traffic), initial encounter; Y93.89 Activity, other specified; Y92.89 Other specified places as the place of occurrence of the external cause; Y99.8 Other external cause status; Z79.01 Long term (current) use of anticoagulants
CPT/HCPCS: 36415; 71045; 73702; 80048; 80053; 80202; 81003; 82550; 82553; 83605; 84484; 85025; 85610; 87040; 87070; 87075; 87081; 87205; 93005; 96365; 96367; 99285; J1650; J2250; J2270; J2405; J2543; J3010; J3370; J3490; J7030; J7060; Q0092

== ENCOUNTER 2018-03-02 16:43 | Emergency (ER) | payer OTHER ==
[~2018-03-02] VITALS: Ht 167.6 cm; Wt 81.6 kg
[~2018-03-02 16:43] MED LIST changes: +ACET-2869 PO; +CLIN300C2 PO
[2018-03-02 16:46] VITALS: BP 132/54
--- NOTE | 2018-03-02 16:49 | NUR ---
pt ambulates w/ steady gait to bed 8 at this time.
--- NOTE | 2018-03-02 16:55 | NUR ---
47 yo m bib self FOR MED REFILL related to a "blood clot in his leg" THAT WAS PREVIOUSLY DX. Pt reports that he was diagnosed here with the blood clot about 1 year ago and he reports that he "got shorted by the pharmacy" on his xarelto. Pt aaox4, gcs 15, cms intact. no heat felt on the affected extremity, minor swelling noted. no discoloration. ambulatory w/ steady gait. BRISK CAP REFILL TO LLL. ER MD MADE AWARE. WILL CONTINUE TO MONITOR. hx "blood clot" rx xarelto
--- NOTE | 2018-03-02 17:49 | NUR ---
PT TALKING ON PHONE IN NO APPEARENT DISTRESS. WILL CONTINUE TO MONITOR
[2018-03-02 18:44] LABS: BASOPHILS % (AUTO) 0.7 % (0.0-2.0); EOSINOPHILS # (AUTO) 0.2 K/uL (0-0.4); EOSINOPHILS % (AUTO) 3.3 % (0.0-4.0); HEMATOCRIT 48.1 % (36-52); HEMOGLOBIN 16.7 g/dL (12.0-18.0); LYMPHOCYTES # (AUTO) 1.4 K/uL (2.0-11.5); LYMPHOCYTES % (AUTO) 21.1 % (20.5-51.1); MEAN CORPUSCULAR HEMOGLOBIN 32 pg (27-31); MEAN CORPUSCULAR HGB CONC 35 g/dL (33-37); MEAN CORPUSCULAR VOLUME 91.3 fL (80-94); MONOCYTES # (AUTO) 0.5 K/uL (0.8-1.0); MONOCYTES % (AUTO) 7.3 % (1.7-9.3); NEUTROPHILS # (AUTO) 4.6 K/uL (1.8-7.7); NEUTROPHILS % (AUTO) 67.6 % (42.2-75.2); PLATELET COUNT (AUTO) 277 K/uL (140-450); RED BLOOD CELL COUNT(AUTO) 5.27 MIL/uL (4.20-6.10); RED CELL DISTRIBUTION WIDTH 12.4 % (11.6-13.7); WHITE BLOOD COUNT (AUTO) 6.9 K/uL (4.8-10.8)
[2018-03-02 18:56] LABS: ANION GAP 4.7 (8-16); CARBON DIOXIDE 31.2 mmol/L (21-32); CREATININE 0.9 mg/dL (0.7-1.3); POTASSIUM 3.9 mmol/L (3.5-5.1)
[2018-03-02 19:02] LABS: ALBUMIN 3.7 g/dL (3.4-5.0); TOTAL BILIRUBIN 0.6 mg/dL (0.0-1.0)
[2018-03-02 19:13] LABS: PROTHROMBIN TIME 9.4 secs (10.8-13.4)
[2018-03-02 19:16] LABS: D-DIMER < 100 ng/ml (0-400)
--- NOTE | 2018-03-02 19:19 | NUR ---
report given to samantha for continuity of care
--- NOTE | 2018-03-02 19:20 | NUR ---
RECEIVED REPORT FROM AM NURSE. PT RESTING IN BED COMFORTABLY, RR EVEN AND UNLABORED. PT DENIES PAIN AT THIS TIME. ALL NEEDS MET.
--- NOTE | 2018-03-02 19:24 | NUR ---
Dr. Manzanares evaluating patient at bedside.
[2018-03-02 20:01] VITALS: BP 144/91
--- NOTE | 2018-03-02 20:01 | NUR ---
Patient discharged with v/s stable. Written and verbal after care instructions given and explained. Patient alert, oriented and verbalized understanding of instructions. Ambulatory with steady gait. All questions addressed prior to discharge. ID band removed. Patient advised to follow up with PMD. Rx of XARELTO given. Patient educated on indication of medication including possible reaction and side effects. Opportunity to ask questions provided and answered.
== END 2018-03-02 20:01 | disposition home or self-care (01) ==
LOC: MED 16:43
DX: M79.605 Pain in left leg (principal); Z76.0 Encounter for issue of repeat prescription; I48.91 Unspecified atrial fibrillation; Z79.899 Other long term (current) drug therapy
CPT/HCPCS: 36415; 80053; 85025; 85379; 85610; 85730; 93971; 99285; Q0092

== ENCOUNTER 2021-01-26 18:58 | Emergency (ER) | payer OTHER ==
[~2021-01-26] VITALS: Ht 175.3 cm; Wt 140.6 kg
[~2021-01-26 18:58] MED LIST changes: -ACET-2869 PO; +HYDR-5122 PO
[2021-01-26 19:01] VITALS: BP 165/98
[2021-01-26 19:35] LABS: BASOPHILS # (AUTO) 0.1 K/uL (0.00-0.22); EOSINOPHILS # (AUTO) 0.4 K/uL (0-0.4); HEMATOCRIT 47.2 % (36-52); HEMOGLOBIN 15.9 g/dL (12.0-18.0); LYMPHOCYTES # (AUTO) 1.4 K/uL (2.0-11.5); LYMPHOCYTES % (AUTO) 11.9 % (20.5-51.1); MEAN CORPUSCULAR HEMOGLOBIN 31 pg (27-31); MEAN CORPUSCULAR HGB CONC 34 g/dL (33-37); MEAN CORPUSCULAR VOLUME 91.5 fL (80-94); MONOCYTES # (AUTO) 0.8 K/uL (0.8-1.0); MONOCYTES % (AUTO) 6.6 % (1.7-9.3); NEUTROPHILS # (AUTO) 9.1 K/uL (1.8-7.7); NEUTROPHILS % (AUTO) 77.5 % (42.2-75.2); PLATELET COUNT (AUTO) 274 K/uL (140-450); RED BLOOD CELL COUNT(AUTO) 5.16 MIL/uL (4.20-6.10); RED CELL DISTRIBUTION WIDTH 13.5 % (11.6-13.7); WHITE BLOOD COUNT (AUTO) 11.7 K/uL (4.8-10.8)
--- NOTE | 2021-01-26 19:50 | NUR ---
TO ED 07 -- [facility].
[2021-01-26 19:57] LABS: CREATININE 1.1 mg/dL (0.6-1.3)
[2021-01-26 20:00] VITALS: BP 165/98
--- NOTE | 2021-01-26 20:00 | NUR ---
48/M FROM LOBBY WITH A C/O RIGHT LOWER EXTREMITY PAIN. PT DENIES INJURY OR TRAUMA. PT REPORTS HISTORY OF BLOOD CLOTS AND IS NON COMPLIANT WITH ANTI-COAGULATION THERAPY X 9 MOS. REDNESS NOTED TO R CALF. WARM TO TOUCH.
[2021-01-26 20:02] LABS: ALBUMIN 3.4 g/dL (3.4-5.0); TOTAL BILIRUBIN 0.6 mg/dL (0.0-1.0)
--- NOTE | 2021-01-26 20:14 | NUR ---
ULTRASOUND AT BEDSIDE.
[2021-01-26] MEDS ORDERED: ENOXAPARIN 100 MG/ML SYR SUBQ ONE (21:30)
[2021-01-26] MEDS ORDERED: CEPH-588 PO (21:33)
[2021-01-26] MEDS ORDERED: RIVA15TA1 PO (21:33)
[2021-01-26] MEDS ORDERED: HYDR-5080 PO (21:33)
--- NOTE | 2021-01-26 21:44 | NUR ---
ERMD AT BEDSIDE EXPLAINING ULTRASOUND RESULTS.
--- NOTE | 2021-01-26 21:50 | NUR ---
Patient discharged with v/s stable. Written and verbal after care instructions given and explained. Patient alert, oriented and verbalized understanding of instructions. Ambulatory with steady gait. All questions addressed prior to discharge. ID band removed. Patient advised to follow up with PMD. Rx of KEFLEX, NORCO AND XARELTO given. Patient educated on indication of medication including possible reaction and side effects. Opportunity to ask questions provided and answered.
== END 2021-01-26 21:50 | disposition home or self-care (01) ==
LOC: MED 18:58
DX: I87.311 Chronic venous hypertension (idiopathic) with ulcer of right lower extremity (principal); I51.9 Heart disease, unspecified; Z79.899 Other long term (current) drug therapy
CPT/HCPCS: 36415; 80053; 85025; 93971; 96372; 99284; J1650

== ENCOUNTER 2023-07-19 21:38 | Emergency (ER) | payer OTHER ==
[~2023-07-19] VITALS: Ht 177.8 cm; Wt 113.4 kg
[~2023-07-19 21:38] MED LIST changes: +CEPH-588 PO; +HYDR-5080 PO
[2023-07-19 21:55] VITALS: BP 157/85; PULSE 90; RESP 17; TEMP 98.2; O2SAT 97
[2023-07-19 23:41] VITALS: BP 157/85; PULSE 90; RESP 17; TEMP 98.2; O2SAT 97
[2023-07-20] MEDS ORDERED: RIVA15TA1 PO (10:47)
== END 2023-07-19 23:41 | disposition left against medical advice (07) ==
LOC: MED 21:38
DX: Z76.0 Encounter for issue of repeat prescription (principal); Z53.21 Procedure and treatment not carried out due to patient leaving prior to being seen by health care provider
CPT/HCPCS: 99281

== ENCOUNTER 2023-07-20 10:07 | Emergency (ER) | payer OTHER ==
[~2023-07-20] VITALS: Ht 177.8 cm; Wt 113.4 kg
[2023-07-20 10:14] VITALS: BP 155/107; PULSE 82; RESP 16; TEMP 97.8; O2SAT 95
[2023-07-20] MEDS ORDERED: RIVA15TA1 PO (10:47)
[2023-07-20 10:58] VITALS: BP 145/99; PULSE 82; RESP 16; TEMP 97.8; O2SAT 95
== END 2023-07-20 10:58 | disposition home or self-care (01) ==
LOC: MED 10:07
DX: R22.42 Localized swelling, mass and lump, left lower limb (principal); L81.9 Disorder of pigmentation, unspecified; Z76.0 Encounter for issue of repeat prescription; Z86.718 Personal history of other venous thrombosis and embolism; I48.91 Unspecified atrial fibrillation; Z79.899 Other long term (current) drug therapy; Z79.2 Long term (current) use of antibiotics; Z79.01 Long term (current) use of anticoagulants
CPT/HCPCS: 99281

== ENCOUNTER 2023-08-24 03:03 | Emergency (ER) | payer OTHER ==
[~2023-08-24] VITALS: Ht 177.8 cm; Wt 124.7 kg
[2023-08-24 03:17] VITALS: BP 175/132; PULSE 88; RESP 16; TEMP 97.4; O2SAT 96
[2023-08-24 03:39] VITALS: BP 175/132; PULSE 88; RESP 16; TEMP 97.4
[2023-08-24 03:45] VITALS: O2SAT 98
[2023-08-24] MEDS ORDERED: RIVA15TA1 PO (03:56)
== END 2023-08-24 04:11 | disposition home or self-care (01) ==
LOC: MED 03:03
DX: S81.802A Unspecified open wound, left lower leg, initial encounter (principal); Z76.0 Encounter for issue of repeat prescription; I48.91 Unspecified atrial fibrillation; Z86.718 Personal history of other venous thrombosis and embolism; Z79.899 Other long term (current) drug therapy; Z79.01 Long term (current) use of anticoagulants; X58.XXXA Exposure to other specified factors, initial encounter; Y92.89 Other specified places as the place of occurrence of the external cause; Y93.89 Activity, other specified; Y99.8 Other external cause status
CPT/HCPCS: 99281

== ENCOUNTER 2023-09-12 09:05 | Emergency (ER) | payer OTHER ==
[~2023-09-12] VITALS: Ht 175.3 cm; Wt 113.4 kg
[2023-09-12 09:12] VITALS: BP 167/119; PULSE 81; RESP 20; TEMP 98.2; O2SAT 95
[2023-09-12] MEDS ORDERED: RIVA15TA1 PO (10:12)
[2023-09-12 10:15] VITALS: BP 167/119; PULSE 81; RESP 20; TEMP 98.2; O2SAT 95
== END 2023-09-12 10:15 | disposition home or self-care (01) ==
LOC: MED 09:05
DX: I82.492 Acute embolism and thrombosis of other specified deep vein of left lower extremity (principal); Z76.0 Encounter for issue of repeat prescription; I48.91 Unspecified atrial fibrillation; Z79.899 Other long term (current) drug therapy; Z79.01 Long term (current) use of anticoagulants
CPT/HCPCS: 99281

== ENCOUNTER 2024-01-01 07:28 | Emergency (ER) | payer OTHER ==
[~2024-01-01] VITALS: Ht 176.5 cm; Wt 116.1 kg
[2024-01-01 07:45] VITALS: BP 176/115; PULSE 75; RESP 18; TEMP 97.8; O2SAT 94
== END 2024-01-01 08:17 | disposition home or self-care (01) ==
LOC: MED 07:28
DX: I87.2 Venous insufficiency (chronic) (peripheral) (principal); R03.0 Elevated blood-pressure reading, without diagnosis of hypertension; I48.91 Unspecified atrial fibrillation; Z86.718 Personal history of other venous thrombosis and embolism; Z79.1 Long term (current) use of non-steroidal anti-inflammatories (NSAID); Z79.2 Long term (current) use of antibiotics; Z79.899 Other long term (current) drug therapy
CPT/HCPCS: 99282

== ENCOUNTER 2024-01-14 15:00 | Inpatient (IN) | payer OTHER ==
[~2024-01-14] VITALS: Ht 177.8 cm; Wt 115.7 kg
[2024-01-14 15:11] VITALS: BP 150/108; PULSE 85; RESP 24; TEMP 97.6; O2SAT 95
[2024-01-14 16:05] LABS: BASOPHILS # (AUTO) 0.1 K/uL (0.00-0.22); BASOPHILS % (AUTO) 1.2 % (0.0-2.0); EOSINOPHILS # (AUTO) 0.2 K/uL (0-0.4); EOSINOPHILS % (AUTO) 2.6 % (0.0-4.0); HEMATOCRIT 54.1 % (36-52); HEMOGLOBIN 18.2 g/dL (12.0-18.0); LYMPHOCYTES # (AUTO) 0.7 K/uL (2.0-11.5); LYMPHOCYTES % (AUTO) 11.8 % (20.5-51.1); MEAN CORPUSCULAR HEMOGLOBIN 32 pg (27-31); MEAN CORPUSCULAR HGB CONC 34 g/dL (33-37); MEAN CORPUSCULAR VOLUME 94.3 fL (80-94); MONOCYTES # (AUTO) 0.4 K/uL (0.8-1.0); MONOCYTES % (AUTO) 6.9 % (1.7-9.3); NEUTROPHILS # (AUTO) 4.7 K/uL (1.8-7.7); NEUTROPHILS % (AUTO) 77.5 % (42.2-75.2); PLATELET COUNT (AUTO) 191 K/uL (140-450); RED BLOOD CELL COUNT(AUTO) 5.74 MIL/uL (4.20-6.10); RED CELL DISTRIBUTION WIDTH 15.1 % (11.6-13.7)
[2024-01-14 16:20] LABS: ALBUMIN 3.1 g/dL (3.4-5.0); ANION GAP 12.9 (8-16); CREATININE 1.6 mg/dL (0.6-1.3); POTASSIUM 3.9 mmol/L (3.5-5.1); TOTAL PROTEIN, SERUM 6.6 g/dL (6.4-8.2)
[2024-01-14 16:23] LABS: LACTIC ACID 1.7 mmol/L (0.4-2.0)
[2024-01-14] MEDS ORDERED: cefTRIAXone 1,000 MG VIAL ONE (17:21)
[2024-01-14] MEDS: ASPIRIN 325 MG TAB PO ONE (17:25)
[2024-01-14] MEDS ORDERED: LACTATED RINGERS 1,000 ML IV SCH (18:05)
[2024-01-14] MEDS ORDERED: DEXT 5% / NACL 0.45% 1,000 ML IV SCH (18:05)
[2024-01-14] MEDS ORDERED: ZOLPIDEM 5 MG TAB PO PRN (18:05)
[2024-01-14] MEDS ORDERED: MAG SULF 2000 MG/WATER PREMIX 50 ML IV PRN (18:05)
[2024-01-14] MEDS ORDERED: ACETAMINOPHEN 325 MG TAB PO PRN (18:05)
[2024-01-14] MEDS ORDERED: MAGNESIUM OXIDE 400 MG TAB PO PRN (18:05)
[2024-01-14] MEDS ORDERED: POTASSIUM CHL 20 MEQ/NACL 0.9% 1,000 ML IV SCH (18:05)
[2024-01-14] MEDS ORDERED: HYDROcodone/APAP 5/325 MG 1 TAB TAB PO PRN (18:05)
[2024-01-14] MEDS ORDERED: DEXT 5% /NACL 0.9% 1,000 ML IV SCH (18:05)
[2024-01-14] MEDS ORDERED: KCL 20 MEQ IN 100 mL PREMIX 200 ML IV PRN (18:05)
[2024-01-14] MEDS ORDERED: ONDANSETRON 4 MG/2 ML VIAL IVP PRN (18:05)
[2024-01-14] MEDS ORDERED: POTASSIUM CHLORIDE 10 MEQ TABER PO PRN (18:05)
[2024-01-14] MEDS ORDERED: LORazepam 1 MG TAB PO PRN (18:05)
[2024-01-14 18:14] LABS: BILIRUBIN,URINE 1+ (NEGATIVE); BLOOD, URINE NEGATIVE (NEGATIVE); COLOR,URINE YELLOW (YELLOW); LEUKOCYTE ESTERASE ,URINE NEGATIVE (NEGATIVE); NITRITE, URINE NEGATIVE (NEGATIVE); PROTEIN,URINE 1+ (NEGATIVE); UGLUCOSE NEGATIVE (NEGATIVE)
[2024-01-14 18:16] LABS: APPEARANCE,URINE SLIGHTLY HAZY (CLEAR)
[2024-01-14 18:27] LABS: ICTOTEST POSITIVE (NEGATIVE)
[2024-01-14 18:28] LABS: RBC,URINE 0-5 /HPF (0-5); WBC,URINE 0 /HPF (0-5)
[2024-01-14 18:29] LABS: BACTERIA,URINE 0-2 /HPF (None Seen); MUCUS,URINE None Seen /LPF (None Seen); SQUAMOUS EPITHELIAL CELL,UR 0-3 (FEW) /LPF (0-3 (FEW))
[2024-01-14 18:40] LABS: AMPHETAMINE, URINE POSITIVE ng/ml (NEG <=1000); BARBITURATE, URINE NEGATIVE ng/ml (NEG <=200); BENZODIAZEPINE, URINE NEGATIVE ng/mL (NEG <=200); CANNABINOID, URINE NEGATIVE ng/mL (NEG <=50); COCAINE, URINE NEGATIVE ng/mL (NEG <=300); OPIATE, URINE NEGATIVE ng/mL (NEG <=2000); PHENCYCLIDINE SCREEN,URINE NEGATIVE ng/mL (NEG <=25)
[2024-01-14] MEDS ORDERED: FURO20TA8 PO (19:48)
[2024-01-14 21:18] VITALS: PULSE 75; RESP 18; O2SAT 97
[2024-01-15] VITALS: BP 144/96; PULSE 75; PULSE 79; RESP 18; TEMP 97; O2SAT 97
[2024-01-15 04:00] VITALS: BP 145/92; PULSE 71; PULSE 74; RESP 18; TEMP 97.8; O2SAT 97
[2024-01-15 07:15] LABS: BASOPHILS # (AUTO) 0.1 K/uL (0.00-0.22); BASOPHILS % (AUTO) 1.4 % (0.0-2.0); EOSINOPHILS # (AUTO) 0.2 K/uL (0-0.4); EOSINOPHILS % (AUTO) 3.7 % (0.0-4.0); HEMOGLOBIN 17.2 g/dL (12.0-18.0); LYMPHOCYTES # (AUTO) 0.9 K/uL (2.0-11.5); LYMPHOCYTES % (AUTO) 15.7 % (20.5-51.1); MEAN CORPUSCULAR HEMOGLOBIN 32 pg (27-31); MEAN CORPUSCULAR HGB CONC 34 g/dL (33-37); MEAN CORPUSCULAR VOLUME 94.5 fL (80-94); MONOCYTES # (AUTO) 0.5 K/uL (0.8-1.0); NEUTROPHILS % (AUTO) 70.2 % (42.2-75.2); PLATELET COUNT (AUTO) 182 K/uL (140-450); RED CELL DISTRIBUTION WIDTH 14.9 % (11.6-13.7); WHITE BLOOD COUNT (AUTO) 5.6 K/uL (4.8-10.8)
[2024-01-15 07:25] LABS: ALBUMIN 2.8 g/dL (3.4-5.0); ANION GAP 10.1 (8-16); CALCIUM 9.2 mg/dL (8.5-10.1); CARBON DIOXIDE 27.8 mmol/L (21-32); CREATININE 1.5 mg/dL (0.6-1.3); MAGNESIUM 2.3 mg/dL (1.8-2.4); PHOSPHORUS 3.7 mg/dL (2.5-4.9); POTASSIUM 4.9 mmol/L (3.5-5.1); TOTAL BILIRUBIN 1.7 mg/dL (0.0-1.0); TOTAL PROTEIN, SERUM 6.4 g/dL (6.4-8.2)
[2024-01-15 08:00] VITALS: BP 142/90; PULSE 74; PULSE 75; PULSE 85; RESP 18; TEMP 96.4; O2SAT 97
[2024-01-15] MEDS: DOCUSATE SODIUM 100 MG GELCAP PO SCH (09:00)
[2024-01-15] MEDS: FUROSEMIDE 40 MG/4 ML VIAL IVP SCH (09:28)
[2024-01-15] MEDS: ENOXAPARIN 40 MG/0.4 ML SYR SUBQ SCH (09:28)
[2024-01-15 12:00] VITALS: BP 139/82; PULSE 76; RESP 18; TEMP 98.3; O2SAT 97
[2024-01-15 16:00] VITALS: BP 144/90; PULSE 75; PULSE 87; RESP 18; TEMP 97.3; O2SAT 97
[2024-01-15] MEDS ORDERED: NON ADHERENT DRESSING TP PRN (16:00)
[2024-01-15] MEDS: NON ADHERENT DRESSING TP SCH (16:30)
[2024-01-15] MEDS ORDERED: FURO40TA9 PO (17:36)
[2024-01-15] MEDS ORDERED: ATOR40TA PO (17:36)
[2024-01-15] MEDS ORDERED: RIVA20TA PO (17:36)
[2024-01-15 20:00] VITALS: BP 139/85; PULSE 90; PULSE 92; RESP 18; TEMP 96.8; O2SAT 93
[2024-01-15] MEDS: MEDS-TO-BEDS MC SCH (21:31)
[2024-01-16] VITALS: BP 138/90; PULSE 90; PULSE 91; RESP 18; TEMP 97.2; O2SAT 92
[2024-01-16 04:00] VITALS: BP 144/80; PULSE 81; PULSE 92; RESP 16; TEMP 96.8; O2SAT 93
[2024-01-16 07:17] LABS: BASOPHILS # (AUTO) 0.1 K/uL (0.00-0.22); BASOPHILS % (AUTO) 1.1 % (0.0-2.0); EOSINOPHILS # (AUTO) 0.2 K/uL (0-0.4); EOSINOPHILS % (AUTO) 3.5 % (0.0-4.0); HEMATOCRIT 50.6 % (36-52); LYMPHOCYTES # (AUTO) 0.9 K/uL (2.0-11.5); LYMPHOCYTES % (AUTO) 13.2 % (20.5-51.1); MEAN CORPUSCULAR HEMOGLOBIN 32 pg (27-31); MEAN CORPUSCULAR HGB CONC 34 g/dL (33-37); MEAN CORPUSCULAR VOLUME 93.8 fL (80-94); MONOCYTES # (AUTO) 0.6 K/uL (0.8-1.0); MONOCYTES % (AUTO) 9.1 % (1.7-9.3); NEUTROPHILS # (AUTO) 4.9 K/uL (1.8-7.7); NEUTROPHILS % (AUTO) 73.1 % (42.2-75.2); PLATELET COUNT (AUTO) 190 K/uL (140-450); RED BLOOD CELL COUNT(AUTO) 5.39 MIL/uL (4.20-6.10); WHITE BLOOD COUNT (AUTO) 6.8 K/uL (4.8-10.8)
[2024-01-16 07:47] LABS: ALBUMIN 2.8 g/dL (3.4-5.0); ANION GAP 12.6 (8-16); CALCIUM 9.3 mg/dL (8.5-10.1); CARBON DIOXIDE 28.6 mmol/L (21-32); CREATININE 1.5 mg/dL (0.6-1.3); MAGNESIUM 2.1 mg/dL (1.8-2.4); PHOSPHORUS 3.7 mg/dL (2.5-4.9); POTASSIUM 4.2 mmol/L (3.5-5.1); TOTAL BILIRUBIN 2.1 mg/dL (0.0-1.0); TOTAL PROTEIN, SERUM 6.4 g/dL (6.4-8.2)
[2024-01-16 08:00] VITALS: BP 114/76; PULSE 76; PULSE 79; PULSE 86; RESP 18; TEMP 97.8; TEMP 98.7; O2SAT 97
[2024-01-16 11:44] VITALS: PULSE 85; RESP 18; O2SAT 97
[2024-01-16 12:00] VITALS: BP_SYST 113; BP_SYST 144; BP_DIAS 75; BP_DIAS 80; PULSE 81; PULSE 85; PULSE 92; RESP 16; RESP 19; TEMP 96.8; TEMP 97.5; O2SAT 93
== END 2024-01-16 18:00 | disposition home or self-care (01) | DRG 194 ==
LOC: MED 15:00 → MTU 18:06
PROVIDERS: ADMIT Hospitalist; ATTEND Hospitalist
DX: I13.0 Hypertensive heart and chronic kidney disease with heart failure and stage 1 through stage 4 chronic kidney disease, or unspecified chronic kidney disease (principal); J96.00 Acute respiratory failure, unspecified whether with hypoxia or hypercapnia; I21.4 Non-ST elevation (NSTEMI) myocardial infarction; E44.0 Moderate protein-calorie malnutrition; I42.7 Cardiomyopathy due to drug and external agent; I48.0 Paroxysmal atrial fibrillation; F15.10 Other stimulant abuse, uncomplicated; I50.33 Acute on chronic diastolic (congestive) heart failure; I87.2 Venous insufficiency (chronic) (peripheral); Z68.36 Body mass index [BMI] 36.0-36.9, adult; Z79.899 Other long term (current) drug therapy; N18.31 Chronic kidney disease, stage 3a
CPT/HCPCS: 36415; 71045; 80053; 80305; 81001; 82948; 83605; 83735; 83880; 84100; 84484; 85025; 87040; 87081; 93005; 96365; 99291; J0696; J1650; J1940